=== PATIENT | female | born 1950 | race Caucasian/White ===

== ENCOUNTER 2023-12-28 13:44 | Outpatient (CLI) | payer OTHER | END 2023-12-28 13:46 | disposition home or self-care (01) | LOC: NUCLEAR 13:44 | PROVIDERS: ATTEND Obstetrics & Gynecology | DX: M81.0 Age-related osteoporosis without current pathological fracture (principal) ==

== ENCOUNTER 2024-04-12 12:01 | Outpatient (CLI) | payer OTHER | END 2024-04-12 12:04 | disposition home or self-care (01) | LOC: RAD 12:01 | PROVIDERS: ATTEND Specialist | DX: J45.998 Other asthma (principal) ==

== ENCOUNTER 2024-05-18 14:06 | Emergency (ER) | payer OTHER ==
[~2024-05-18] VITALS: Ht 162.6 cm; Wt 65.3 kg
[2024-05-18 14:10] VITALS: BP 154/93; O2SAT 93
[2024-05-18] MEDS ORDERED: WELLBUTRIN SR100 MG (14:28)
[2024-05-18] MEDS ORDERED: MEMANTINE HCL5 MG (14:29)
[2024-05-18] MEDS ORDERED: RESTORIL7.5 MG (14:29)
[2024-05-18] MEDS ORDERED: RISPERDAL1 MG (14:29)
[2024-05-18] MEDS ORDERED: 0.9 % SODIUM CHLORIDE 1,000 ML IV STA (15:19)
[2024-05-18] MEDS ORDERED: KETOROLAC TROMETHAMINE 30 MG VIAL IV STA (15:20)
[2024-05-18] MEDS ORDERED: KETOROLAC TROMETHAMINE 60 MG VIAL IM ONE (15:28)
[2024-05-18 16:04] LABS: HEMATOCRIT 37.7 % (36.0-45.00); HEMOGLOBIN 12.6 g/dL (12.0-15.00); MEAN CELL VOLUME 88.1 fL (80.00-100.00); MEAN CORPUSCULAR HEMOGLOBIN 29.6 pg (27.00-32.0); MEAN CORPUSCULAR HGB CONC 33.5 g/dl (32.0-36.0); PLATELET COUNT 214 K/uL (150-450); RED BLOOD COUNT 4.27 M/uL (4.00-6.00); RED CELL DISTRIBUTION WIDTH 14.1 % (11.5-14.5)
[2024-05-18 16:05] LABS: URINE APPEARANCE Clear; URINE BILIRRUBIN Negative (NEGATIVE); URINE BLOOD Negative; URINE COLOR Yellow; URINE GLUCOSE Negative (NEGATIVE); URINE KETONE Negative (NEGATIVE); URINE LEUKOCYTE Negative; URINE NITRATE Negative; URINE PROTEIN Negative (NEGATIVE); URINE UROBILINOGEN 0.2 E.U./dl
[2024-05-18 16:06] LABS: URINE BACTERIA 9.7 uL (0.0-1933); URINE RBC 2.6 uL (0.0-20.8)
[2024-05-18 16:07] LABS: URINE WBC 0.4 uL (0.0-23.2)
[2024-05-18 16:27] LABS: CALCIUM 9.3 mg/dL (8.5-10.1); CREATININE SERUM 0.67 mg/dL (0.55-1.02); GFR 85.8; POTASSIUM 4.11 mEq/L (3.5-5.1)
[2024-05-18] MEDS ORDERED: ZITHROMAX500 MG PO (17:55)
[2024-05-18] MEDS ORDERED: TUSNEL LIQUID178 ML PO (17:55)
== END 2024-05-18 18:04 | disposition home or self-care (01) ==
LOC: ER 14:09
PROVIDERS: General Practice
DX: B34.9 Viral infection, unspecified (principal); M19.90 Unspecified osteoarthritis, unspecified site; Z20.822 Contact with and (suspected) exposure to COVID-19
CPT/HCPCS: 36415; 93005; 96365; 96366; 99283; J1885; J7030